=== PATIENT | male | born 1945 | race Caucasian/White ===

== ENCOUNTER → 2017-01-23 | Outpatient (CLI) | payer MEDICARE, OTHER ==
[~2017-01-23] MED LIST: ASACOL PO; ASACOL400 MG PO; BENTYL PO; BENTYL20 MG PO; CANASA1000 MG/SU PR; DELZICOL PO; DELZICOL400 M1 PO; GLUCOTROL PO; GLYBURIDE PO; GLYNASE PO; IMURAN PO; IMURAN50 MG PO; LISINOPRIL PO; REMICADE; SELENIUM; SELENIUM PO
== END | disposition home or self-care (01) ==
LOC: CSSDAY 09:35
DX: K51.00 Ulcerative (chronic) pancolitis without complications (principal); Z79.899 Other long term (current) drug therapy
CPT/HCPCS: 96365; 96366; 96413; J1745

== ENCOUNTER → 2017-03-06 | Outpatient (CLI) | payer MEDICARE, OTHER ==
[2017-03-06 10:26] LABS: BASOPHIL% 0.7 % (0-2.5); EOSINOPHIL# 0.1 X10e3 (0-0.7); HEMATOCRIT 45.4 % (38.0-50.0); HEMOGLOBIN 15.4 gm/dL (13.0-16.0); LYMPHOCYTE# 1.7 X10e3 (1.0-3.5); LYMPHOCYTE% 27.7 % (17.0-45.0); MEAN CELL VOLUME 95.3 FL (83-96); MEAN CORPUSCULAR HEMOGLOBIN 32.3 PG (28-34); MEAN CORPUSCULAR HGB CONC 33.9 g/dL (30-36); MEAN PLATELET VOLUME 7.9 FL (6.5-11.5); MONOCYTE# 0.5 X10e3 (0-1.0); MONOCYTE% 8.3 % (3.0-12.0); NEUTROPHIL# 3.7 X10e3 (1.5-7.1); NEUTROPHIL% 61.3 % (40-75); PLATELET COUNT 126 X10e3 (140-420); RED BLOOD COUNT 4.77 X10e (3.90-5.60); RED CELL DISTRIBUTION WIDTH 13.8 % (11.0-15.5)
[2017-03-06 10:27] LABS: DIFF IND NO
[2017-03-06 10:56] LABS: ALBUMIN SERUM 4.3 g/dL (3.5-5.0); BILIRUBIN,TOTAL 1.1 mg/dL (0.2-2.0); CALCIUM SERUM 9.2 mg/dL (8.4-10.2); GLOM FILT RATE Estimated 75.4 mL/min (>60); POTASSIUM 4.3 mmol/L (3.5-5.1); PROTEIN TOTAL SERUM 7.3 g/dL (6.0-8.3)
== END | disposition home or self-care (01) ==
LOC: CSSDAY 09:54
PROVIDERS: Internal Medicine Gastroenterology
DX: K51.00 Ulcerative (chronic) pancolitis without complications (principal); Z79.899 Other long term (current) drug therapy
CPT/HCPCS: 36415; 80053; 85025; 86140; 96413; 96415; J1745

== ENCOUNTER → 2017-04-17 | Outpatient (CLI) | payer MEDICARE, OTHER | END | disposition home or self-care (01) | LOC: CSSDAY 07:15 | DX: K51.00 Ulcerative (chronic) pancolitis without complications (principal); Z79.899 Other long term (current) drug therapy | CPT/HCPCS: 96413; 96415; J1745 ==

== ENCOUNTER → 2017-05-29 | Outpatient (CLI) | payer MEDICARE, OTHER ==
[2017-05-29 10:14] LABS: BASOPHIL% 0.7 % (0-2.5); EOSINOPHIL# 0.1 X10e3 (0-0.7); EOSINOPHIL% 1.7 % (0.0-7.0); HEMATOCRIT 43.3 % (38.0-50.0); HEMOGLOBIN 14.7 gm/dL (13.0-16.0); LYMPHOCYTE# 1.5 X10e3 (1.0-3.5); LYMPHOCYTE% 28.2 % (17.0-45.0); MEAN CELL VOLUME 95.4 FL (83-96); MEAN CORPUSCULAR HEMOGLOBIN 32.4 PG (28-34); MEAN PLATELET VOLUME 8.2 FL (6.5-11.5); MONOCYTE# 0.5 X10e3 (0-1.0); MONOCYTE% 9.2 % (3.0-12.0); NEUTROPHIL# 3.2 X10e3 (1.5-7.1); NEUTROPHIL% 60.2 % (40-75); PLATELET COUNT 134 X10e3 (140-420); RED BLOOD COUNT 4.54 X10e (3.90-5.60); RED CELL DISTRIBUTION WIDTH 14.2 % (11.0-15.5); WHITE BLOOD COUNT 5.3 X10e3 (4.0-10.5)
[2017-05-29 10:15] LABS: DIFF IND NO
[2017-05-29 11:03] LABS: ALBUMIN SERUM 4.2 g/dL (3.5-5.0); BILIRUBIN,TOTAL 1.4 mg/dL (0.2-2.0); BUN/CREATININE RATIO 14.54; CALCIUM SERUM 9.3 mg/dL (8.4-10.2); CREATININE SERUM 1.1 mg/dL (0.6-1.4); GLOM FILT RATE Estimated 67.2 mL/min (>60); POTASSIUM 4.6 mmol/L (3.5-5.1); PROTEIN TOTAL SERUM 6.9 g/dL (6.0-8.3)
== END | disposition home or self-care (01) ==
LOC: CSSDAY 09:43
PROVIDERS: Internal Medicine Gastroenterology
DX: K51.00 Ulcerative (chronic) pancolitis without complications (principal); Z79.899 Other long term (current) drug therapy
CPT/HCPCS: 36415; 80053; 85025; 86140; 96413; 96417; J1745

== ENCOUNTER → 2017-07-10 | Outpatient (CLI) | payer MEDICARE, OTHER | END | disposition home or self-care (01) | LOC: CSSDAY 07:15 | DX: Z51.11 Encounter for antineoplastic chemotherapy (principal); K51.00 Ulcerative (chronic) pancolitis without complications | CPT/HCPCS: 96413; 96415; J1745 ==